=== PATIENT | male | born 1945 | race Caucasian/White ===

== ENCOUNTER 2017-09-09 15:06 | Emergency (ER) | payer MEDICARE ==
[~2017-09-09] VITALS: Ht 180.3 cm; Wt 120.2 kg
[2017-09-09] MEDS ORDERED: SODIUM CHLORIDE 0.9% 1000ML 1,000 ML IV STA (16:41)
[2017-09-09] MEDS ORDERED: ASPIRIN 81 MG CHEW TAB PO ONE (16:45)
[2017-09-09] MEDS ORDERED: MECLIZINE HCL 12.5 MG TAB PO ONE (16:45)
--- NOTE | 2017-09-09 17:39 | Diagnostic Imaging Report ---
PROCEDURE: Frontal and lateral views of the chest. COMPARISON: None. INDICATIONS: NEAR SYNCOPE FINDINGS: Lines/tubes: None. Lungs: The lungs are well inflated and clear. There is no evidence of pneumonia or pulmonary edema. Pleura: There is no pleural effusion or pneumothorax. Heart and mediastinum: Median sternotomy wires and mediastinal clips. The heart is within normal limits for size. Bones: No acute bony abnormality. Spondylosis of the lower thoracic spine. IMPRESSION: 1. No acute thoracic abnormality. Tad Mahajan M.D. Dictated by: Tad Mahajan M.D. on 09/09/2017 at 17:38 Electronically approved by: Tad Mahajan M.D. on 09/09/2017 at 17:38
--- NOTE | 2017-09-09 17:58 | Diagnostic Imaging Report ---
EXAMINATION: Head CT HISTORY: Dizziness, near syncope COMPARISON: None. TECHNIQUE: Multidetector axial images were obtained without contrast from the foramen magnum to the vertex . The images were reconstructed using brain and bone algorithms. Thin section brain images were reformatted into coronal and sagittal planes. Intravenous contrast: None. Motion/streaking artifact limits the evaluation of the skull base and posterior cranial fossa. FINDINGS: Parenchyma: 1. No abnormal densities. 2. No mass or hemorrhage. No CT evidence of acute territorial vascular insult. Extra-axial spaces:No abnormal density. No extra-axial fluid collections Brain volume: Normal for age. Ventricles: No hydrocephalus or displacement. Arteries: No density suggestive of thrombus. Dural sinuses: No abnormal density. Extra-axial spaces: No abnormal density. Foramen magnum: No mass, Chiari malformation, or basilar invagination. Sella: No obvious mass. Paranasal/mastoid sinuses: Imaged portions unremarkable. Skull/Scalp: No lytic or blastic lesions. No fractures. IMPRESSION: No intracranial abnormalities, particularly no hemorrhage or acute cortical infarcts. Signed by: Dr. Lorenza Arias M.D. on 09/09/2017 5:54 PM
[2017-09-09 18:43] LABS: BILIRUBIN,URINE NEGATIVE (NEGATIVE); COLOR,URINE YELLOW (YELLOW); KETONES,URINE NEGATIVE (NEGATIVE); LEUKOCYTE ESTERASE ,URINE NEGATIVE (NEGATIVE); NITRITE,URINE NEGATIVE (NEGATIVE); PROTEIN,URINE DIPSTICK NEGATIVE (NEGATIVE); URINE UROBILINOGEN 0.2 mg/dL (0.2 - 1)
[2017-09-09 18:44] LABS: CLARITY,URINE CLEAR (CLEAR)
[2017-09-09 19:44] LABS: BASOPHILS # (AUTO) 0.1 (0.0-0.1); BASOPHILS % 0.9 % (0.0-1.0); EOSINOPHILS # (AUTO) 0.8 (0.0-0.4); EOSINOPHILS % 10.5 % (0.0-6.0); HEMOGLOBIN 15.5 g/dL (14.0-18.0); LYMPHOCYTES # (AUTO) 1.8 (1.0-3.2); LYMPHOCYTES % 23.6 % (18.0-39.1); MEAN CORPUSCULAR HEMOGLOBIN 31.3 pg (28-32); MEAN CORPUSCULAR HGB CONC 33.7 g/dL (31-35); MEAN CORPUSCULAR VOLUME 92.9 fL (81-99); MONOCYTES # (AUTO) 0.9 (0.2-0.8); MONOCYTES % 12.4 % (4.4-11.3); NEUTROPHILS # (AUTO) 3.9 (2.1-6.9); NEUTROPHILS % 52.2 % (38.7-80.0); PLATELET COUNT 220 x10e3/uL (140-360); RED BLOOD COUNT 4.95 x10e6/uL (4.3-5.7); RED CELL DISTRIBUTION WIDTH 12.3 % (11.7-14.4)
[2017-09-09 19:50] LABS: INR 1.03; PROTHROMBIN TIME 12.7 seconds (11.9-14.5)
[2017-09-09 19:51] LABS: PARTIAL THROMBOPLASTIN TIME 29.8 seconds (23.8-35.5)
[2017-09-09 19:58] LABS: ALANINE AMINOTRANSFERASE 41 IU/L (0-55); ALBUMIN 4.2 g/dL (3.5-5.0); ALBUMIN/GLOBULIN RATIO 1.1 (0.8-2.0); ALKALINE PHOSPHATASE 40 IU/L (40-150); ANION GAP 15.3 mmol/L (8-16); BLOOD UREA NITROGEN 19 mg/dL (7-26); BUN/CREATININE RATIO 15 (6-25); CALCIUM 9.1 mg/dL (8.4-10.2); CARBON DIOXIDE 24 mmol/L (22-29); CHLORIDE 105 mmol/L (98-107); CREATINE KINASE 69 IU/L (30-200); CREATININE, SERUM 1.23 mg/dL (0.72-1.25); EST GLOMERULAR FILTRATION RATE 58 ML/MIN (60-); GLUCOSE 101 mg/dL (74-118); MAGNESIUM 1.9 MG/DL (1.3-2.1); POTASSIUM 4.3 mmol/L (3.5-5.1); SODIUM 140 mmol/L (136-145)
== END 2017-09-09 21:47 | disposition home or self-care (01) ==
LOC: ER 15:06
DX: R42 Dizziness and giddiness (principal); H81.13 Benign paroxysmal vertigo, bilateral; I51.9 Heart disease, unspecified; Z87.891 Personal history of nicotine dependence
CPT/HCPCS: 36415; 70450; 71046; 80053; 81001; 82550; 82553; 83735; 84484; 85025; 85610; 85730; 87086; 93005; 96360; 99284; J7030